=== PATIENT | male | born 1980 | race Caucasian/White ===

== ENCOUNTER 2019-10-17 10:03 | Outpatient (CLI) | payer OTHER, SELFPAY ==
--- NOTE | 2019-10-17 10:06 | MR_ITS ---
WS: [id number] MRI BRAIN WITH AND WITHOUT CONTRAST HISTORY: MIGRAINE COMPARISON: None available. TECHNIQUE: Multiplanar imaging performed through the brain with Prohance 17 ml's IV. Study is limited by motion artifact towards the end of the examination. No acute infarcts are seen. Oshea-white matter differentiation is well preserved. There are a few scat tered T2 and FLAIR signal hyperintensities which are appropriate for the patient's age. No prior infa rct. Prominent perivascular space along the inferior LEFT basal ganglia. No susceptibility artifacts or prior lacunar infarcts. Ventricles and extra-axial spaces are normal. Clivus and pituitary gland are normal. Visualized posterior fossa and brainstem are also normal. Postcontrast images are negative for masses or vascular malformations. Dural venous sinuses are normal. Paranasal sinuses: Mild mucoperiosteal thickening throughout the sinuses. Very small mucous retention cysts in the maxillary sinuses. Mastoid air cells: Normal. Calvarium and scalp: Normal. MR/MR head wo/w con [id number] IMPRESSION: 1. Normal MRI brain with contrast. 2. No prior infarcts or edema. 3. Mild mucoperiosteal sinus disease.
== END 2019-10-17 10:04 | disposition home or self-care (01) ==
PROVIDERS: Family Provider Internal Medicine; PCP Internal Medicine; Visit Provider Internal Medicine
DX: G43.909 Migraine, unspecified, not intractable, without status migrainosus (principal); J32.8 Other chronic sinusitis
CPT/HCPCS: 70553; A9579

== ENCOUNTER 2021-07-06 14:55 | Outpatient (CLI) | payer OTHER, SELFPAY ==
--- NOTE | 2021-07-06 14:58 | US_ITS ---
WS: [id number] SCROTAL ULTRASOUND EXAMINATION CLINICAL INFORMATION: R TESTE PAIN/?TESTICULAR TORSION COMPARISON: None. FINDINGS: TESTES Scrotal skin thickening. Testicles are normal in size and echotexture, without focal lesion. Color Doppler: Normal color Doppler flow pattern. Right testes size: 4.7 cm x 3.3 cm x 2.8 cm. Left testes size: 4.3 cm x 2.7 cm x 2.3 cm. EPIDIDYMIDES Enlarged right epididymis with increased vascularity suspicious for epididymitis. Right epididymis measures 1.1 x 1.9 cm Left epididymis measures 1.3 x 0.7 cm. Small epididymal cysts. HYDROCELE Small right hydrocele VARICOCELE None. OTHER FINDINGS None. US/US scrotum [id number] IMPRESSION: 1. Findings compatible with right epididymitis. 2. Small right hydrocele. 3. Scrotal skin thickening. 4. Small left epididymal cysts.
== END 2021-07-06 14:56 | disposition home or self-care (01) ==
PROVIDERS: PCP Family Medicine; Visit Provider Family Medicine
DX: N50.811 Right testicular pain (principal); N43.3 Hydrocele, unspecified; N50.3 Cyst of epididymis
CPT/HCPCS: 76870

== ENCOUNTER 2021-08-12 07:48 | Emergency (ER) | payer OTHER, SELFPAY ==
[2021-08-12 08:12] VITALS: BP 165/103; PULSE 86; RESP 19; TEMP 36.6; O2SAT 97; BMI 28.2
--- NOTE | 2021-08-12 08:34 | W.ED.BACK ---
HPI - Back Pain/Injury General: Chief Complaint: Back Pain/Injury Stated Complaint: Back pain in lower back, numb in stomach and side Time Seen by Provider: 08/12/21 07:57 History of Present Illness: HPI Narrative: Patient states he has history of chronic low back pain. But he has been got significant starting on Tuesday and pain radiates from his back across his abdomen. States right side of his stomach skin feels somewhat numb and painful. Developed blisters along this pain area MD elicited complaint: back pain Pertinent past history: prior back pain Onset (ago): day(s) Timing: constant and progressively worsening Severity: moderate Similar Symptoms Previously: No Quality: burning Associated symptoms: Deny abdominal pain, chills, fever(s), nausea or vomiting Treatments prior to arrival: other (Rash) Review of Systems Const: Denies: fever(s), chills or body aches Eyes: Denies: change in vision or blurry vision ENMT: Denies: throat pain or nasal congestion Card: Denies: chest pain or dyspnea on exertion Resp: Denies: dyspnea, productive cough or non-productive cough GI: Denies: abdominal pain, nausea or vomiting : Denies: difficulty urinating Musc: Reports: back pain (Chronic); Denies: extremity pain Skin/Breast: Reports: rash, skin pain (From mid back right side to abdomen) and skin tenderness Neuro: Denies: headache(s) Psych: Denies: anxiety or depression Shon/Lymph: Denies: easy bruising Physical Exam Const: COMMON NORMALS: average body habitus GENERAL APPEARANCE: cooperative Resp: COMMON NORMALS: normal respiratory effort Skin: RASHES: rashes noted (Vesicular type rash in patches from mid right lower back to abdomen) Course Vital Signs: Vital signs: Vital Signs Temperature 97.8 F 08/12/21 08:12 Pulse Rate 86 08/12/21 08:12 Respiratory Rate 19 H 08/12/21 08:12 Blood Pressure 165/103 08/12/21 08:12 Pulse Oximetry 97 08/12/21 08:12 Discharge Plan Discharge Patient Disposition: Home Clinical Impression: Shingles Qualifiers: Herpes zoster complications: disseminated zoster Qualified Code(s): B02.7 - Disseminated zoster Condition: Stable Prescriptions: New acyclovir 800 mg tablet 800 mg PO QID Qty: 40 RF: 0 hydrocodone-acetaminophen 5-325 mg tablet 1 tab PO TID PRN (Reason: pain) Qty: 21 RF: 0 Discharge Orders: Discharge ED (Routine); Ordered 08/12/21 Ordered By: Sunday Segovia Referrals: Danita Liu MD [Primary Care Provider] - Discharge Diet: Usual diet Patient Instructions: Shingles (ED), Opioid Safety Activity Restrictions/Additional Instructions: Follow-up with medical provider as directed. Take medications as prescribed. Return to the ER or your medical provider if condition worsens. Please read and understand discharge instructions. If any questions ask please. Coding Level of Care Code ED Palliative Senior Np for Bashir Barker
[2021-08-12 08:41] VITALS: BP 143/100; PULSE 80; RESP 17; O2SAT 96
== END 2021-08-12 08:42 | disposition home or self-care (01) ==
PROVIDERS: Emergency Provider Nurse Practitioner Family; PCP Family Medicine
DX: B02.7 Disseminated zoster (principal); Z79.891 Long term (current) use of opiate analgesic
CPT/HCPCS: 99282

== ENCOUNTER → 2022-01-21 07:30 | Outpatient (BNVA) | payer OTHER, SELFPAY | PROVIDERS: PCP Family Medicine; Visit Provider Urology | DX: N45.1 Epididymitis (principal) | CPT/HCPCS: 81003; 99203 ==

== ENCOUNTER 2023-05-10 15:48 | Emergency (ER) | payer OTHER, SELFPAY ==
[2023-05-10 15:50] VITALS: BP 180/100; PULSE 87; RESP 17; TEMP 36.8; O2SAT 98; BMI 27.3
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
[2023-05-10 17:00] VITALS: PULSE 87; RESP 16
[2023-05-10 17:27] LABS: Basophils # 0.1 10^3/uL (0.0-0.1); Basophils % 1.3 %; Eosinophils # 0.1 10^3/uL (0.0-0.8); Eosinophils % 1.8 %; Hematocrit 44.1 % (37-53); Lymphocytes # 1.3 10^3/uL (0.8-4.8); Lymphocytes % 16.2 %; Mean Corpuscular HGB Conc 34.2 g/dL (30-55); Mean Corpuscular Hemoglobin 30.7 pg (27-33); Mean Corpuscular Volume 89.6 fl (82-101); Mean Platelet Volume 11.1 fL (7.4-10.4); Monocytes # 0.5 10^3/uL (0.2-0.9); Monocytes % 6.5 %; Neutrophils # 5.76 10^3/uL (1.8-7.7); Neutrophils % 73.8 %; Nucleated Red Blood Cells % 0 %; Platelet Count 221 10^3/cmm (157-399); Red Blood Count 4.92 10^6/uL (3.85-5.65)
[2023-05-10 17:48] LABS: Alanine Aminotransferase 30 U/L (0-41); Albumin Level 4.7 g/dL (3.5-5.2); Alkaline Phosphatase 68 U/L (40-130); Anion Gap 14.8 (5-19); Aspartate Amino Transferase 27 U/L (0-40); Blood Urea Nitrogen 8 mg/dL (6-20); Calcium 9.4 mg/dL (8.5-10.5); Carbon Dioxide 27 mmol/L (22-29); Chloride 103 mmol/L (98-107); Globulin 3.1 g/dL (1.3-4.6); Glomerular Filtration Rate 92.5 mL/min (90-130); Glucose 93 mg/dL (65-115); Osmolality Calculated 290 mOsm/kg (285-295); Potassium 3.8 mmol/L (3.5-5.1); Sodium 141 mmol/L (136-145); Total Bilirubin 0.5 mg/dL (0.15-1.2); Total Protein 7.8 g/dL (6.6-8.7)
[2023-05-10] MEDS: iohexol 350 mg/mL 500 mL Btl (per mL) IV (17:48)
[2023-05-10] MEDS: HYDROcodone-acetaminophen 5-325 mg Tablet 1 TAB PO (18:30)
[2023-05-10 18:50] VITALS: RESP 18
== END 2023-05-10 18:50 | disposition home or self-care (01) ==
PROVIDERS: Physician Assistant; Emergency Provider Nurse Practitioner Family; PCP Family Medicine
DX: S00.81XA Abrasion of other part of head, initial encounter (principal); S80.00XA Contusion of unspecified knee, initial encounter; F17.210 Nicotine dependence, cigarettes, uncomplicated; V89.2XXA Person injured in unspecified motor-vehicle accident, traffic, initial encounter
CPT/HCPCS: 70450; 71260; 72125; 73110; 74177; 80053; 85025; 96374; 99285; Q9967

== ENCOUNTER 2023-06-17 05:52 | Emergency (ER) | payer OTHER, SELFPAY ==
[2023-06-17 06:00] VITALS: PULSE 101; RESP 18; TEMP 36.8; O2SAT 100; BMI 27.3
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
--- NOTE | 2023-06-17 06:22 | W.ED.GENADLT ---
HPI - General Adult General: Chief complaint: Dental/Oral Stated complaint: Nostrial Pain Time Seen by Provider: 06/17/23 06:17 Source: patient Mode of arrival: ambulatory History of Present Illness: 43-year-old male presents to the ER with complaint of facial pain and swelling. Began 2 days ago with a tender spot under his right nare that he notices he blew his nose. He became increasingly tender and noticed swelling tracking across the lips this morning he noticed swelling extending up into the upper cheek overlying the zygomatic arch is adjacent to the right nasal ala extending up to the lower eyelid. Has not had any drainage. He has no pain in the teeth or gums. There is no overlying rash suggestive of zoster. No trauma. Onset (ago): minute(s) Location: face Quality: sharp Pain Consistency: constant Relieving factors: none Exacerbating factors: other (Palpation) Associated symptoms: Deny chest pain, dyspnea, fevers/chills or rash Review of Systems Const: Denies: fever(s) or chills Card: Denies: chest pain Resp: Denies: dyspnea GI: Denies: abdominal pain : Denies: dysuria, urinary frequency or urinary urgency Musc: Denies: neck pain or back pain Skin/Breast: Denies: rash PFSH ED PFSH: Medical History Epididymitis Scrotal pain Surgical History H/O vasectomy Hx of knee surgery bilateral Family History Father Lung disease copd Mother No problems noted. Social History Smoking and tobacco/nicotine status: current every day tobacco/nicotine user Alcohol intake: current Alcohol intake frequency: few times a month Marital status: Current occupational status: employed Physical Exam Const: GENERAL APPEARANCE: cooperative and comfortable ORIENTATION/CONSCIOUSNESS: Yes awake, Yes oriented to person, Yes oriented to place and Yes oriented to time HENMT: COMMON NORMALS: normocephalic, atraumatic and hearing grossly normal bilaterally HEAD & SCALP: normocephalic and atraumatic OTHER: Induration exquisite tenderness in the right upper cheek adjacent to the nasal ala I extending to the inferior orbital ridge laterally to the zygomatic arch. Examination of the teeth there is no evidence of gum swelling or abscess formation no significant dental caries no drainage. No rash consistent with zoster. No identifiable abscess within the right nare. Resp: COMMON NORMALS: normal respiratory effort, No retractions, No use of accessory muscles and clear to auscultation bilaterally AUSCULTATION: clear to auscultation bilaterally Cardio: COMMON NORMALS: regular rate, regular rhythm and No murmurs present (Cardio) RATE: regular rate RHYTHM: regular rhythm GI: COMMON NORMALS: Soft to palpation and No hepatosplenomegaly present AUSCULTATION: Yes normoactive bowel sounds PALPATION: Yes Soft to palpation, No Tenderness to palpation present (GI), No Guarding due to palpation present (GI) and Yes No hepatosplenomegaly present Extremity: COMMON NORMALS: normal to inspection, capillary refill normal, no clubbing, cyanosis or edema, no calf tenderness and no pedal edema Neuro: SENSORIUM/ORIENTATION: Yes oriented to person, Yes oriented to place and Yes oriented to time Skin: COMMON NORMALS: no rashes or lesions noted GENERAL SKIN EXAM: no rashes or lesions noted Course Vital Signs: Vital signs: Vital Signs Temperature 98.2 F 06/17/23 06:00 Pulse Rate 87 06/17/23 06:47 Respiratory Rate 16 06/17/23 06:47 Blood Pressure 179/112 06/17/23 06:47 Pulse Oximetry 95 06/17/23 06:47 MDM - General Adult Medical Decision Making No abscess on CT. White count normal creatinine normal. Suspect this is a facial cellulitis emanating from the nares rather than the teeth. We will start him on Bactrim 2 tablets twice daily for 10 days. Worsening or change symptoms return to the emergency room he was given a single dose of Zosyn while here. Medical Records I reviewed the patient's medical records. Lab Data I reviewed the patient's lab results. 06/17/23 06:50 06/17/23 06:[address] 06/17/23 06:21 IMPRESSION: Suspect cellulitis changes to the right face. No definite abscess, but assessment is suboptimal secondary to artifact. Laboratory Results WBC 7.92 10^3/uL (3.29-11.43) 06/17/23 06:50 RBC 4.92 10^6/uL (3.85-5.65) 06/17/23 06:50 Hgb 15.30 g/dL (11.27-16.99) 06/17/23 06:50 Hct 43.3 % (37-53) 06/17/23 06:50 MCV 88.0 fl (82-101) 06/17/23 06:50 MCH 31.1 pg (27-33) 06/17/23 06:50 MCHC 35.3 g/dL (30-55) 06/17/23 06:50 RDW 11.9 % (12.1-15.1) L 06/17/23 06:50 Plt Count 174 10^3/cmm (157-399) 06/17/23 06:50 MPV 11.6 fL (7.4-10.4) H 06/17/23 06:50 Neut % (Auto) 76.2 % 06/17/23 06:50 Lymph % (Auto) 13.3 % 06/17/23 06:50 Brooke % (Auto) 7.2 % 06/17/23 06:50 Eos % (Auto) 2.0 % 06/17/23 06:50 Baso % (Auto) 1.0 % 06/17/23 06:50 Neut # (Auto) 6.04 10^3/uL (1.8-7.7) 06/17/23 06:50 Lymph # (Auto) 1.1 10^3/uL (0.8-4.8) 06/17/23 06:50 Brooke # (Auto) 0.6 10^3/uL (0.2-0.9) 06/17/23 06:50 Eos # (Auto) 0.2 10^3/uL (0.0-0.8) 06/17/23 06:50 Baso # (Auto) 0.1 10^3/uL (0.0-0.1) 06/17/23 06:50 Nucleated RBC % (auto) 0 % 06/17/23 06:50 Nucleated RBCs # 0.0 /100WBC 06/17/23 06:50 Potassium 3.9 mmol/L (3.5-5.1) 06/17/23 06:50 Chloride 98 mmol/L (98-107) 06/17/23 06:50 Carbon Dioxide 25 mmol/L (22-29) 06/17/23 06:50 Anion Gap 15.9 (5-19) 06/17/23 06:50 BUN 8 mg/dL (6-20) 06/17/23 06:50 Creatinine 0.8 mg/dL (0.7-1.2) 06/17/23 06:50 GFR Calculation 106.0 mL/min (90-130) 06/17/23 06:50 Glucose 92 mg/dL (65-115) 06/17/23 06:50 Calcium 9.2 mg/dL (8.5-10.5) 06/17/23 06:50 Total Bilirubin 0.5 mg/dL (0.15-1.2) 06/17/23 06:50 AST 25 U/L (0-40) 06/17/23 06:50 ALT 36 U/L (0-41) 06/17/23 06:50 Alkaline Phosphatase 78 U/L (40-130) 06/17/23 06:50 Total Protein 7.3 g/dL (6.6-8.7) 06/17/23 06:50 Albumin 4.5 g/dL (3.5-5.2) 06/17/23 06:50 Globulin 2.8 g/dL (1.3-4.6) 06/17/23 06:50 All radiology interpretation(s) finalized by discharge Discharge Plan Discharge Patient Disposition: Home Clinical Impression: Cellulitis and abscess of face Condition: Stable Prescriptions: New Bactrim DS 800-160 mg tablet 2 tab PO BID 10 Days Qty: 40 0RF hydrocodone-acetaminophen 5-325 mg tablet 1 tab PO Q6H PRN (Reason: pain) Qty: 10 0RF No Action esomeprazole magnesium [Nexium] 20 mg capsule,delayed release(DR/EC) 20 mg PO DAILY lisinopril 10 mg tablet 10 mg PO DAILY cholecalciferol (vitamin D3) [Vitamin D3] 25 mcg (1,000 unit) tablet 25 mcg PO DAILY Discharge Orders: Discharge ED (Routine); Ordered 06/17/23 Ordered By: Devaughn Aguila Referrals: Danita Liu MD [Primary Care Provider] - Discharge Diet: Usual diet Discharge Activity: Resume usual activity Patient Instructions: Cellulitis (ED), Opioid Safety, Pain Management Activity Restrictions/Additional Instructions: Thank you for choosing [facility] for your healthcare needs today. Please realize this is an emergency room and that we are providing you with a medical screening exam and this may not be complete and all inclusive of all the testing and or work up that you may need to determine your ailment or severity of your illness. It is very important that you follow up as instructed or that you return to the Emergency Department should you have concerns or if your condition changes or worsens in any way. You were seen today for cellulitis of the face. CT did not show any abscess. Recommend you start Bactrim, 2 tablets twice daily for 10 days. If you have any worsening or change return to the emergency room or to your primary care doctor. Coding Level of Care Code ED Pull S[employer]er for Bashir Barker
[2023-06-17] MEDS: iohexol 350 mg/mL 500 mL Btl (per mL) IV (06:32)
[2023-06-17] MEDS: ondansetron 2 mg/ML SDV 2 mL 4 MG IVP (06:40)
[2023-06-17] MEDS: morphine 4 mg/mL SDV 1 mL IVP (06:41)
[2023-06-17] MEDS: piperacillin-tazobactam 3.375 GM in sodium chloride 0.9% (plus) 50 ML IV (06:43)
[2023-06-17 06:47] VITALS: BP 179/112; PULSE 87; RESP 16; O2SAT 95
[2023-06-17 07:06] LABS: Basophils # 0.1 10^3/uL (0.0-0.1); Eosinophils # 0.2 10^3/uL (0.0-0.8); Hematocrit 43.3 % (37-53); Lymphocytes # 1.1 10^3/uL (0.8-4.8); Lymphocytes % 13.3 %; Mean Corpuscular HGB Conc 35.3 g/dL (30-55); Mean Corpuscular Hemoglobin 31.1 pg (27-33); Mean Platelet Volume 11.6 fL (7.4-10.4); Monocytes # 0.6 10^3/uL (0.2-0.9); Monocytes % 7.2 %; Neutrophils # 6.04 10^3/uL (1.8-7.7); Neutrophils % 76.2 %; Nucleated Red Blood Cells % 0 %; Platelet Count 174 10^3/cmm (157-399); Red Blood Count 4.92 10^6/uL (3.85-5.65); Red Cell Distribution Width 11.9 % (12.1-15.1); White Blood Count 7.92 10^3/uL (3.29-11.43)
[2023-06-17 07:25] LABS: Alanine Aminotransferase 36 U/L (0-41); Albumin Level 4.5 g/dL (3.5-5.2); Alkaline Phosphatase 78 U/L (40-130); Anion Gap 15.9 (5-19); Aspartate Amino Transferase 25 U/L (0-40); Blood Urea Nitrogen 8 mg/dL (6-20); Calcium 9.2 mg/dL (8.5-10.5); Carbon Dioxide 25 mmol/L (22-29); Chloride 98 mmol/L (98-107); Globulin 2.8 g/dL (1.3-4.6); Glucose 92 mg/dL (65-115); Osmolality Calculated 278 mOsm/kg (285-295); Potassium 3.9 mmol/L (3.5-5.1); Sodium 135 mmol/L (136-145); Total Bilirubin 0.5 mg/dL (0.15-1.2); Total Protein 7.3 g/dL (6.6-8.7)
== END 2023-06-17 07:50 | disposition home or self-care (01) ==
PROVIDERS: Emergency Provider Family Medicine; PCP Family Medicine
DX: L03.211 Cellulitis of face (principal); L02.01 Cutaneous abscess of face; Z72.0 Tobacco use
CPT/HCPCS: 36415; 70487; 80053; 85025; 87040; 96374; 96375; 99285; J2270; J2405; J2543; Q9967

== ENCOUNTER 2023-08-22 10:05 | Outpatient (CLI) | payer OTHER, SELFPAY ==
--- NOTE | 2023-08-22 10:12 | XRR_ITS ---
PROCEDURE INFORMATION: Exam: XR Cervical Spine Exam date and time: 08/22/2023 10:37 AM Age: 43 years old Clinical indication: Other: Cervical stenosis of spine; Prior surgery; Surgery date: 1-6 months; Surgery type: Recent neck fusion TECHNIQUE: Imaging protocol: Radiologic exam of the cervical spine. Views: 2 or 3 views. COMPARISON: CT cervical spin wo con* [id number] 05/10/2023 5:36 PM FINDINGS: Bones/joints: Anterior plate and fusion C5-C6. No lytic or sclerotic bone lesion. No fracture or dislocation. Soft tissues are normal. Normal alignment. Soft tissues: Unremarkable. XR/XR cervical spine 3V* [id number] IMPRESSION: Postoperative findings without visible complication.
== END 2023-08-22 10:06 | disposition home or self-care (01) ==
LOC: RAD 10:08
PROVIDERS: PCP Family Medicine; Visit Provider Nurse Practitioner Family
DX: M48.02 Spinal stenosis, cervical region (principal); Z98.1 Arthrodesis status
CPT/HCPCS: 72040

== ENCOUNTER → 2024-10-30 15:30 | Outpatient (BNVA) | payer OTHER, SELFPAY | PROVIDERS: PCP Family Medicine; Visit Provider Orthopaedic Surgery | DX: M54.50 Low back pain, unspecified (principal); M54.2 Cervicalgia | CPT/HCPCS: 72050; 72110; 99203 ==

== ENCOUNTER → 2024-12-13 10:42 | Outpatient (BNVA) | payer OTHER, SELFPAY | PROVIDERS: PCP Family Medicine; Visit Provider Orthopaedic Surgery | DX: M54.2 Cervicalgia (principal); M54.9 Dorsalgia, unspecified; Z09 Encounter for follow-up examination after completed treatment for conditions other than malignant neoplasm | CPT/HCPCS: 36415; 80053; 81001; 85025; 99214 ==

== ENCOUNTER 2024-12-26 10:41 | Day surgery (SDC) | payer OTHER, SELFPAY ==
[2024-12-26] VITALS (9 sets, daily range): BP systolic 118–159; BP diastolic 85–100; PULSE 61–83; RESP 16–18; TEMP 36.3–36.7; O2SAT 95–99; BMI 27.0
[2024-12-26] MEDS: sodium chloride 0.9% 1,000 ML 30 ML IV (12:00)
--- NOTE | 2024-12-26 12:31 | ANES.PREANE2 ---
Pre-Anesthetic Assessment Height/Weight: Height 6 ft 3 in Weight 216 lb Temp Pulse Resp BP Pulse Ox O2 Del Method 98.0 F 83 18 118/85 99 Room Air 12/26/24 11:06 12/26/24 11:06 12/26/24 11:06 12/26/24 11:06 12/26/24 11:06 12/26/24 11:11 Preop Diagnosis: Lumbar stenosis with neurogenic claudication Operation Date: 12/26/24 12:25 Proposed Procedures p Lumbar Spine Decompression(Not Applicable) - Cameron Gentile, DO Was Beta Júnior taken within 24 hours: N/A Was Clonidine taken within 24 hours: N/A Last intake: Intake Last Liquid Date 12/25/24 Last Liquid Time 22:30 Last Solid Date 12/25/24 Last Solid Time 22:30 Social Tobacco and No alcohol Exam alert, oriented x 3, clear to auscultation bilaterally and regular rate & rhythm Airway Submandibular: within normal limits Cervical ROM: within normal limits Mallampati: Class III Dentition: full Anesthetic Plan ASA status: 2 Anesthesia: General Other: No prior issues with anesthesia NPO since yesterday evening History of hypertension, on lisinopril GERD, on esomeprazole Labs 12/13/2024 reviewed acceptable for procedure today METs greater than 4 Plan for GETA Medications/Allergies Home Medications ?Medication ?Instructions ?Recorded ?Confirmed ?Last Taken ?Type esomeprazole magnesium 20 mg 20 mg PO DAILY 01/21/22 12/25/24 12/25/24 History capsule,delayed release (Nexium) cholecalciferol (vitamin D3) 25 25 mcg PO DAILY 05/10/23 12/25/24 12/25/24 History mcg (1,000 unit) tablet (Vitamin D3) lisinopril 10 mg tablet 10 mg PO DAILY 05/10/23 12/25/24 12/25/24 History prednisone 20 mg tablet 20 mg PO DAILY #15 tabs 10/30/24 12/13/24 Unknown Rx prednisone 20 mg tablet 20 mg PO DAILY #15 tabs 12/13/24 12/13/24 Unknown Rx Allergies Allergy/AdvReac Type Severity Reaction Status Date / Time No Known Allergies Allergy Verified 12/13/24 07:47 [facility] Anesthesia Medical History Scrotal pain Epididymitis Surgical History H/O vasectomy Hx of knee surgery bilateral Family History Father Lung disease copd Mother No problems noted. Social History Smoking and tobacco/nicotine status: unknown if used tobacco/nicotine Alcohol intake: current Alcohol intake frequency: few times a month Marital status: Current occupational status: employed
--- NOTE | 2024-12-26 12:36 | W.PM.OPSUD ---
Surgery/Procedure H&P Update DATE OF PROCEDURE: December 26, 2024 DATE H&P PERFORMED: 12/13/24 H&P UPDATE INFORMATION: I have reviewed H&P completed within last 30 days, I have examined patient prior to procedure and No changes to prior documentation PREOP DIAGNOSIS: Lumbar stenosis with neurogenic claudication PLANNED PROCEDURE: Operation Date: 12/26/24 12:25 Proposed Procedures p Lumbar Spine Decompression(Not Applicable) - Cameron Gentile DO
[2024-12-26] MEDS: ceFAZolin 2,000 mg SDV 2000 MG IVP (12:56)
[2024-12-26] MEDS: lidocaine-epi 1% 20 mL INJ 10 ML INJECTION (13:27)
--- NOTE | 2024-12-26 14:22 | PM.OP ---
Operative Report Date of procedure: December 26, 2024 Pre-op diagnosis: Lumbar stenosis neurogenic claudication Post-op diagnosis: same Procedure done: L5/S1 laminectomy and partial facetectomy revision Surgeon: Cameron Gentile DO Estimated blood loss (mL): 15 Procedure: L5/S1 laminectomy and partial facetectomy revision Patient is brought to the operative suite. After undergoing anesthesia they are placed in the prone position. All areas of impingement are well padded. Patient is then prepped and draped in the normal sterile fashion. A skin incision is made over the L5/S1 level. This is confirmed under c-arm guidance. A series of dilators are passed and the tubular retractor is docked on the L5 lamina. A bovie is used to clear the soft tissue off the lamina and the L 5/S1 facet joint. A high speed amelie is then used to perform the laminectomy and take down the medial aspect of the L 5/S1 facet joint. A kerrison rongeure was then used to take down the remaining lamina and smooth the edge of the laminectomy up to the point where the ligamentum flavum attaches. Attention was then brought to the medial aspect of the facet joint. The remaining medial aspect of the superior and inferior aspect of the facet joint were taken down with the kerrison from the pedicle of L5 to S1. The facet joint had significant hypertrophy. Attention was then brought to the Ligamentum Flavum. The ligament was taken down from the lamina of L5 to S1 and out medially to the remaining facet joint. The ligament was thick scarred. The dura was then exposed. The dura was in good repair. The L5 nerve was then traced with a curette out the L5/S1 foramen and found to be adequately decompressed. The S1 nerve was traced with a curette around the S1 pedicle. The lateral recess was opened with a kerrison helping to further decompress the S1 nerve. Wound is then irrigated copiously with saline and surgiflo is used to stop any bleeding. The tubular retractor is removed and the wound is closed with vicryl and monocryl suture. Glue is then used to protect the wound. A sterile dressing is then placed. Patient was then placed in the supine position and transferred to the PACU in stable condition.
--- NOTE | 2024-12-26 15:18 | XR_ITS ---
WS: [id number] XR lumbar spine 1V [id number] REASON FOR EXAM: or pic, decompression FINDINGS: Surgical instrument overlies the left L5-S1 disc space. XR/XR lumbar spine 1V [id number] IMPRESSION: Lumbar level localization and surgery as above.
[2024-12-26] MEDS: HYDROcodone-acetaminophen 5-325 mg Tablet 1 TAB PO (15:22)
== END 2024-12-26 15:45 | disposition home or self-care (01) ==
PROVIDERS: PCP Family Medicine; Visit Provider Orthopaedic Surgery
PROC: (CPT 63005; principal; 2024-12-26 12:05)
DX: M48.062 Spinal stenosis, lumbar region with neurogenic claudication (principal); I10 Essential (primary) hypertension; K21.9 Gastro-esophageal reflux disease without esophagitis
CPT/HCPCS: 63047; 72020; 76000; J0330; J0690; J1100; J1171; J2250; J2405; J2704; J2710; J3010; J3490; J7030; J9999

== ENCOUNTER → 2025-01-10 15:39 | Outpatient (BNVA) | payer OTHER, SELFPAY | PROVIDERS: PCP Family Medicine; Visit Provider Orthopaedic Surgery | DX: Z98.890 Other specified postprocedural states (principal) | CPT/HCPCS: 99024 ==

== ENCOUNTER → 2025-01-14 09:50 | Outpatient (BNVA) | payer OTHER, SELFPAY | PROVIDERS: PCP Family Medicine; Referring Provider Family Medicine; Visit Provider Anesthesiology Pain Medicine | DX: M54.2 Cervicalgia (principal); M79.18 Myalgia, other site | CPT/HCPCS: 99204 ==

== ENCOUNTER → 2025-01-23 12:45 | Outpatient (BNVA) | payer OTHER, SELFPAY | PROVIDERS: PCP Family Medicine; Visit Provider Anesthesiology Pain Medicine | DX: M79.18 Myalgia, other site (principal); M54.2 Cervicalgia | CPT/HCPCS: 20553; 99213; J1010; J3490 ==

== ENCOUNTER → 2025-02-07 08:21 | Outpatient (BNVA) | payer OTHER, SELFPAY | PROVIDERS: PCP Family Medicine; Visit Provider Orthopaedic Surgery | DX: Z98.890 Other specified postprocedural states (principal) | CPT/HCPCS: 99024 ==